=== PATIENT | male | born 1970 | race Caucasian/White ===

== ENCOUNTER → 2024-02-17 14:12 | Outpatient (REF) | payer BC, SELFPAY | LOC: HWRAD 14:12 | PROVIDERS: ATTENDING PHYSICIAN Podiatrist; FAMILY PHYSICIAN Family Medicine | DX: M85.60 Other cyst of bone, unspecified site (principal) | CPT/HCPCS: 73630 ==

== ENCOUNTER → 2024-03-02 13:18 | Outpatient (REF) | payer BC, SELFPAY | LOC: PAVMRI 13:18 | PROVIDERS: ATTENDING PHYSICIAN Podiatrist Foot & Ankle Surgery | DX: M86.671 Other chronic osteomyelitis, right ankle and foot (principal) | CPT/HCPCS: 73720; A9575 ==

== ENCOUNTER 2024-03-15 11:46 | Inpatient (IN) | payer BC, SELFPAY ==
[2024-03-15] VITALS (8 sets, daily range): BP systolic 120–170; BP diastolic 78–105; BMI 23.3
--- NOTE | 2024-03-15 09:51 | ED.GENMED ---
History of Present Illness
General
Chief Complaint: Musculo-Skeletal Complaint
Source: patient and spouse
Exam Limitations: none
Time Seen by Provider: 03/15/24 09:08
Nursing documentation reviewed up to this point in time: agreed with
History of Present Illness
History of Present Illness:
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
fifth metatarsal. There is additional surrounding myositis and cellulitis. Podiatry and infectious disease as an outpatient determined that this will need surgery and bone biopsy and IV antibiotics. He otherwise feels generally well today. Has
had some intermittent fevers over the past few weeks.
Past History
Past History
ED Past Medical History: [place]
ED Past Surgical History: Appendectomy
Social History
Tobacco: Smoker
Alcohol: Daily (4 beers)
Drug: None
Personal:
Living: with family
Employment: Employed
Review of Systems
Review of Systems
Allergies reviewed?: Yes
All Other Systems: ROS reviewed and negative except as documented in HPI and ROS
Phy Exam
Physical Exam
Physical Exam:
GENERAL: Alert , in no apparent distress
EYE: pupils equal and reactive
NECK: Supple, no significant adenopathy.
ENT: o/p clr, mmm.
CARDIAC: Regular rate and rhythm .
LUNGS: Clear breath sounds bilaterally, no acute respiratory distress, no wheezes/rales/rhonchi
ABDOMEN: Soft, without focal tenderness, no r/g, no cvat
NEUROLOGICAL: Alert and oriented, no focal neuro deficits
SKIN: Warm and dry, skin intact.
MUSCULOSKELETAL: Deformity to the right foot some vague redness tenderness to the area overlying the distal fifth metatarsal, well perfused.
PSYCH: Normal and appropriate interaction.
Sepsis
Sepsis Screening
Sepsis Assessment: Sepsis Ruled Out
Sepsis Screen
Sepsis Screen: Sepsis Ruled Out
Date: 03/15/24
Time: 10:00
Course
Orders/Labs/Results
Orders:
Orders
03/15/24 09:38
EKG [Electrocardiogram (*1)] Urgent
Reason for Study: PreOp
EKG- Treatment ONCE
CBC/With Diff [Complete Blood Count/With Diff] Urgent
CMP [Comprehensive Metabolic Panel] Urgent
Vital Signs
Initial and Last Documented VS:
Initial Vital Signs
Temp Pulse Resp BP Pulse Ox
98.7 F 90 16 170/105 100
03/15/24 08:37 03/15/24 08:37 03/15/24 08:37 03/15/24 08:37 03/15/24 08:37
Last Documented Vital Signs
Temp Pulse Resp BP Pulse Ox
98.7 F 79 16 120/96 98
03/15/24 08:37 03/15/24 09:35 03/15/24 09:35 03/15/24 09:35 03/15/24 09:35
MDM/Problems Addressed
MDM/Problems Addressed:
53-year-old male presenting for surgery of the right foot. Sent in by podiatry and also had discussions with infectious disease. Podiatry physician was specifically contacted and requested to hold off on IV antibiotics until surgery where they
will do a biopsy culture. They are recommending for him to be n.p.o. Labs and EKG sent as preop. Otherwise no symptoms at this time.
*Critical Care Note
Total Time (30-74mins, 75-104mins- exclusive of procedures): Not Applicable
ED Attending Note
-
Portions of this chart may have been created with voice recognition software.� Occasional wrong word or��sound alike� substitutions may have occurred due to the inherent limitations of voice recognition software.
Discharge Plan
Departure
Patient Disposition: Admit
Date of Disposition: 03/15/24
Time of Disposition: 09:58
Admit to: Med/Surg
Admit to doctor: Do
Presentation/result/management discussed w/ accepting MD/DO: Hospitalist
Patient with high blood pressure during this ER visit?: No
Condition: Good
Covid-19: Not Applicable
Discharge Problem:
Osteomyelitis of foot
Prescriptions:
No Action
aspirin 81 MG tablet,delayed release (DR/EC)
81 mg PO DAILY
ibuprofen 200 MG tablet
200 mg PO Q4HPRN PRN (Reason: mild pain/ fever)
amoxicillin-pot clavulanate 1 TABLET tablet
1 tab PO Q12 Qty: 16 0RF
Referrals:
Carlin Hirsch DO [Family Provider] -
Interventions
Interventions:
*Risk Screen - Suicide Last Done: 03/15/24 09:35
*General Assessment Last Done: 03/15/24 09:35
*Neglect/Abuse Screening Last Done: 03/15/24 09:35
ED- Fall Risk Assessment Last Done: 03/15/24 09:39
*ED COVID-19 Vaccine History Last Done: 03/15/24 09:35
ED-Musculoskeletal Assessment Last Done: 03/15/24 09:39
Discharge Date and Time
Print Language: ESTONIAN
[2024-03-15 10:04] LABS: % Basophils 0.8 % (0-2); % Eosinophils 2.3 % (0-6); % Immature Granulocytes 0.5 % (0-0.5); % Lymphocytes 15.9 % (20.5-51.1); % Monocytes 16.5 % (1.7-9.3); Absolute Basophils 0.1 10^3/uL (0-0.2); Absolute Eosinophils 0.2 10^3/uL (0-0.7); Absolute Lymphocytes 1.2 10^3/uL (1.2-3.4); Absolute Monocytes 1.2 10^3/uL (0.1-0.6); Absolute Neutrophils 4.7 10^3/uL (1.4-6.5); Hematocrit 48.2 % (39.0-52.0); Hemoglobin 16.5 g/dL (13.0-18.0); Mean Corp Hgb Conc. 34.2 g/dL (33.0-37.0); Mean Corpuscular Hgb 32.9 pg (27.0-31.0); Mean Corpuscular Volume 96.2 fL (80.0-94.0); Mean Platelet Volume 8.9 fL (7.4-10.4); Nucleated Red Blood Cells % 0 % (-); Platelet Count 218 10^3/uL (130-400); Red Blood Cell Count 5.01 10^6/uL (4.70-6.10); Red Cell Dist. Width 12.4 % (11.5-14.5); White Blood Cell Count 7.4 10^3/uL (4.8-10.8)
[2024-03-15 10:14] LABS: ALT (SGPT) 14 U/L (0-50); AST (SGOT) 16 U/L (17-59); Albumin 4.3 g/dl (3.5-5.0); Alkaline Phosphatase 62 U/L (38-126); Blood Urea Nitrogen 14 mg/dl (9-20); Calcium 9.5 mg/dl (8.4-10.2); Carbon Dioxide 23 mmol/L (22-30); Chloride 106 mmol/L (98-107); Estimated Creatinine Clearance > 125 ml/min; Glucose 113 mg/dl (70-99); Potassium 4.3 mmol/L (3.5-5.1); Sodium 138 mmol/L (135-145); Total Bilirubin 0.4 mg/dl (0.2-1.3); Total Protein 7.6 g/dl (6.3-8.2); eGFR > 60.00
--- NOTE | 2024-03-15 11:04 | EDRN ---
Dr. Broderick in room w/ pt at this time.
[2024-03-15 11:18] LABS: INR 1.05
--- NOTE | 2024-03-15 11:20 | HPS.HSE ---
Family Physician
-
Family Physician: Carlin Hirsch
Chief Complaint
-
Right foot osteomyelitis
History of Present Illness
Patient is a 53 years old male who was born with a right foot deformity and has longstanding right foot pedal aspect wound initially started with callus and later developed osteomyelitis. Patient underwent antibiotic treatment with levofloxacin
which was discontinued about 3 weeks ago. Follow-up imaging with MRI consistent with extensive osteomyelitis of the fifth metatarsal. There is a surrounding myositis and cellulitis without overt abscess. Patient has been admitted with plan for
right fifth metatarsal head resection. Patient has been afebrile with no symptoms of generalized infection.
Medical History
Past Medical History
Past Medical History: Reports None
Past Surgical History: Reports None
Social History
Tobacco: Smoker
Alcohol: None
Drug: None
Family History
Family History: Not pertinent
Allergies / Home Medications
Allergies reflects when Allergies were last updated in [facility].
Home Medications with original date entered in [facility]
Allergy/Medication List:
Allergies
Allergy/AdvReac Type Severity Reaction Status Date / Time
No Known Allergies Allergy Verified 03/15/24 08:42
Home Medications
No Meds [No Current Medications] 03/15/24
Review of Systems
-
A 12 point ROS was completed and negative except as noted: Yes
Physical Exam
Vital Signs
Vital Signs
Temp Pulse Resp BP Pulse Ox
98.7 F 72 16 123/83 97
03/15/24 08:37 03/15/24 10:00 03/15/24 10:00 03/15/24 10:00 03/15/24 10:00
Physical Exam
General: Well Developed, Well Nourished and No Apparent Distress
HEENT: NormoCephalic, Moist mucous membranes and Atraumatic
Respiratory: Clear
Cardiac: S1/S2 and Regular Rhythm; No Murmur or Rub
GI: Soft, Non Tender, Non Distended and Normal Bowel Sounds; No Organomegaly
Rectal: Deferred by Provider
Musculoskeletal: No Clubbing, No Cyanosis and No Edema
Skin: No Rash
Neuro: Nonfocal/grossly intact
Laboratory Results
-
03/15/24 09:48
03/15/24 09:48
Laboratory Results
Total Bilirubin 0.4 mg/dl (0.2-1.3) 03/15/24 09:48
AST 16 U/L (17-59) L 03/15/24 09:48
ALT 14 U/L (0-50) 03/15/24 09:48
Alkaline Phosphatase 62 U/L (38-126) 03/15/24 09:48
Impression/Plan
-
IMPRESSION:
Right foot fifth metatarsal posterior with myositis and cellulitis.
Right foot deformity
Tobacco use disorder
PLAN:
Being admitted for fevers metatarsal healthy resection.
ID consulted
Antibiotic treatment pending intraoperative culture
--- NOTE | 2024-03-15 12:44 | EDRN ---
Pt left for 1 acute admission bed at this time in w/c after verbal report given to pt's RN Nelda at this time.
--- NOTE | 2024-03-15 13:30 | W.CS.POD ---
Addendum entered and electronically signed by Juan Garsia DPM 03/15/24 14:32:
Patient had food at 2pm, so rescheduled for Rt foot bone resection for tomorrow 03/16/2024 at 4pm
NPO at midnight today.
Original Note:
Consult Summary - Podiatry
-
53 yo non diabetic male known to me as an out patient in the clinic few wks ago,presented with Rt foot possible osteomyelitis with chronic Rt plantar callus lesion, was treated by another front desk agent with debridement and po abx for 3 wks , and noted
to have extensive osteomyelitis of the Rt 5th metatarsal , so I have sent him tot he hosp for possible Rt foot 5th met head resection and followed by [facility] IV abx after bone cultures, PT currently in no acute distress, no fever, chills, no
SOB,. HE is aware of the procedure today.
Reviewed PMH, meds and allergies
Rt foot Intact vascular status
Rt foot submet 5th with callus, no open ulceration, no edema, no erythema to Rt foot .
B/L feet with defects noted.
B/L muscular strength WNL
WBC count is WNL
A/P : Rt foot 5th metatarsal osteomyelitis.
Chronic smoker.
defct of the feet
Plan : I have d/w patient and primary service about Rt 5th met resection and sending bone for pathology and cultures
requested ID for possible [facility] IV abx
Scheduled patient for the bone resection today 03/15/2024 at 4pm
NPo for the procedure
Medical clearance by hosp service
D/W patient about all risks of non healing, reinfection, more proximal bone resections, no guarantees given with the outcome
Patient t understands and willing to proceed with procedure
Obtained consent.
--- NOTE | 2024-03-15 14:13 | PTCARENOTE ---
Pt admitted to 1Acute. AOx3. on RA. expiratory wheeze noted. current pack/day smoker. Regular heart sounds. abd soft NT. +BSx4. cont b&B. Pt ordered to be NPO but was observed eating meal, plan for OR this evening so podiatry notified. POC updated.
new plan for OR tomorrow. 4pm skin is CDI, right foot previous amputations. No edema. PP B/L CB in reach.
--- NOTE | 2024-03-15 15:47 | CON.ID ---
Consultation
-
Date/Time Consultation Requested: 03/15/2024 1351
Date/Time Consultation Performed: 03/15/2024 1512
Requesting Provider: Dr. Broderick
Performing Provider: Dr. Lee
Reason for Consultation: Right foot osteomyelitis
Chief Complaint / Past History
History of Present Illness
Melissa Patton is a 53-year-old male being evaluated at the request of Dr. Broderick regarding right foot osteomyelitis. History is obtained from chart review, along with patient interview.
The patient has a history of right foot deformity, and reports a prior history of right foot osteomyelitis approximately 5 years ago. At that time he notes that he was on a course of antibiotics, although he is not sure whether it was IV or not.
Ultimately the infection at that time resolved. More recently, approximately 2 to 2-1/2 months ago he reports that he had recurrence of swelling, especially along the lateral aspect of his right foot and onto the ankle area. He additionally
recalls that there was drainage under the [facility] head area. He notes that it was not a lot of drainage, but he did have the area bandaged and often would see a small amount of drainage in that spot. He notes that his Nuclear Chemistry Technician placed him on
a course of Levaquin for approximately 3 weeks. Drainage improved, although was not completely resolved. He ultimately was sent on to a surgical Nuclear Chemistry Technician, and further workup ensued, including x-ray imaging, and more recently an MRI which was
suggestive of osteomyelitis. He has been brought in for biopsy.
He denies any fevers or chills. He notes prior swelling was limited to the right foot area, with no extension of redness above the ankle.
Past History
Additional Past Medical History:
Congenital foot deformities
Additional Past Surgical History:
Right foot surgery.
Appendectomy
Low back surgery
Allergy History:
No Known Allergies Allergy (Verified 03/15/24 08:42)
Medications Reviewed: Yes
Current Antibiotics:
None
Social History
Tobacco: Smoker (1 pack/day)
Alcohol: Occasional (Social)
Drug: None
Personal:
Living: With Family
Employment: Employed
Review of Systems
Vital Signs
Temp Pulse Resp BP Pulse Ox
98.2 F 63 18 136/86 99
03/15/24 14:10 03/15/24 14:10 03/15/24 14:10 03/15/24 14:10 03/15/24 14:10
Physical Exam
Physical Exam
Constitutional: No Acute Distress, Comfortable and Non-toxic
Eyes: Sclera Anicteric
Cardiovascular: S1/S2; Negative S3/S4
Pulmonary: Non Labored
Gastrointestinal: Soft, Non Tender and Non Distended
Extremities: Edema (trace; right foot), Pulses and Venous Insufficiency; Negative Erythema or Calf Swelling
Skin: Warm and Dry; Negative Rash or Jaundice
Wound: None
Neurological: Awake, Alert and Oriented
Lab / Diagnostic Study Results
03/15/24 09:48
03/15/24 09:48
Abs Immat Gran (auto) 0.0 10^3/uL (0-0.05) 03/15/24 09:48
Absolute Neuts (auto) 4.7 10^3/uL (1.4-6.5) 03/15/24 09:48
Absolute Lymphs (auto) 1.2 10^3/uL (1.2-3.4) 03/15/24 09:48
Absolute Monos (auto) 1.2 10^3/uL (0.1-0.6) H 03/15/24 09:48
Absolute Basos (auto) 0.1 10^3/uL (0-0.2) 03/15/24 09:48
Immature Gran % 0.5 % (0-0.5) 03/15/24 09:48
Neutrophils % 64.0 % (42.2-75.2) 03/15/24 09:48
Lymphocytes % 15.9 % (20.5-51.1) L 03/15/24 09:48
Monocytes % 16.5 % (1.7-9.3) H 03/15/24 09:48
Eosinophils % 2.3 % (0-6) 03/15/24 09:48
Basophils % 0.8 % (0-2) 03/15/24 09:48
PT 14.0 Sec (11.4-14.6) 03/15/24 11:00
INR 1.05 03/15/24 11:00
Microbiology Results
Imaging:
03/02/2024 MRI right lower extremity: There is extensive osteomyelitis of the fifth metatarsal with surrounding myositis and cellulitis, without overt abscess.
02/17/2024 X-ray right foot: There is prominent soft tissue edema within the lateral aspect of the distal foot, with dislocation of the fifth phalanx and erosions involving the left fifth metatarsal head compatible with osteomyelitis. There appears
to be a wound within the adjacent soft tissues. There has been prior postsurgical resections of the distal margins of the left 1st through 4th toes. (Film personally viewed.)
Assessment / Plan
Right foot osteomyelitis (fifth metatarsal)
History of congenital foot abnormality
Recommendations:
Patient currently off antibiotics for at least the past 3 weeks.
Continue off antibiotics for the present.
Patient for biopsy of the area tomorrow.
Please send aerobic and anaerobic cultures, along with pathology.
Further recommendations as additional data is returned.
Care Review
Plan reviewed with: Physician (Hospitalist)
[2024-03-16] VITALS (7 sets, daily range): BP systolic 12–130; BP diastolic 75–89
--- NOTE | 2024-03-16 14:15 | W.PN.ID1 ---
Date of Service
Date of Service: March 16, 2024
Today's Communication
Observe off antibiotics; await biopsy/resection.
Assessment / Plan
Right foot osteomyelitis (fifth metatarsal)
History of congenital foot abnormality
Recommendations:
Patient currently off antibiotics for at least the past 3 weeks.
Continue off antibiotics for the present.
Patient for biopsy (versus fifth met resection) later today.
Please send aerobic and anaerobic cultures, along with pathology.
Further recommendations as additional data is returned.
Will attempt to get outpatient cultures from patient's supervisor cytogenetic laboratory.
Chief Complaint
-: Other (Right foot osteomyelitis)
Subjective / Review of Systems
Review of Systems: No Fever and No Chills
Vital Signs / Physical Exam
Vital Signs
Vital Signs
Temp Pulse Resp BP Pulse Ox
98.2 F 70 16 111/79 97
03/16/24 07:00 03/16/24 07:00 03/16/24 07:00 03/16/24 07:00 03/16/24 07:00
Physical Exam
Constitutional: No Acute Distress, Comfortable and Non-toxic
Eyes: Sclera Anicteric
Pulmonary: Non Labored
Extremities: Other (No right foot erythema. Mild edema.)
Neurological: Awake and Alert
Psychological: Calm
Objective Data
Lab Data
Lab Results
03/15/24 09:48
03/15/24 09:48
PT 14.0 Sec (11.4-14.6) 03/15/24 11:00
INR 1.05 03/15/24 11:00
APTT 29.0 Sec (23.4-35.0) 03/15/24 11:00
Estimated Creat Clear > 125 ml/min 03/15/24 09:48
Total Bilirubin 0.4 mg/dl (0.2-1.3) 03/15/24 09:48
AST 16 U/L (17-59) L 03/15/24 09:48
ALT 14 U/L (0-50) 03/15/24 09:48
Alkaline Phosphatase 62 U/L (38-126) 03/15/24 09:48
Most recent labs reviewed.
Imaging:
03/02/2024 MRI right lower extremity: There is extensive osteomyelitis of the fifth metatarsal with surrounding myositis and cellulitis, without overt abscess.
02/17/2024 X-ray right foot: There is prominent soft tissue edema within the lateral aspect of the distal foot, with dislocation of the fifth phalanx and erosions involving the left fifth metatarsal head compatible with osteomyelitis. There appears
to be a wound within the adjacent soft tissues. There has been prior postsurgical resections of the distal margins of the left 1st through 4th toes. (Film personally viewed.)
--- NOTE | 2024-03-16 14:25 | CM ---
Patient seen bedside.
IA completed.
Patient lives with spouse in a bilevel home with 6 steps to enter.
Patient independent prior to admission.
patient for OR today.
PCP: Dr Hirsch
Phrmacy: [facility]
Plan: home with possible VN and IV anbx. Options list provided to patient for review.
--- NOTE | 2024-03-16 16:00 | PTCARENOTE ---
Pt sent to OR
--- NOTE | 2024-03-16 17:11 | W.SUR.POST ---
Surgical Immediate Post Op
Note
Pre Op Diagnosis: Rt 5th metatarsal osteomyelitis
Post Op Diagnosis: Same as above
Procedure Performed: Bone resection from Rt 5th metatarsal head and bone sent form base of the 5th toe proximal pahalanx
Primary Surgeon: Dr. Garsia DPM
Secondary Surgeons: None
Anesthesia: MAC with local block
Estimated Blood Loss: 1 cc
Fluids: None
Drains/Shunts: None
Specimens/Cultures: Aerobic and anaerobic
Doppler/Duplex/Angio (Y/N): N
Complications: None
Operative Findings: There was a disarticulated piece of bone noted at the base of the proximal phalanx and minimal erosion noted at the distal aspect of the 5th metatarsal head, remaining metatarsal noted to be healthy and Wnl architecture .
PT stable in PACU with intact vascular status to Rt foot and stable vital signs
--- NOTE | 2024-03-16 17:21 | W.PN.HOSP.TC ---
Today's Communication/Plan
-
OR
Assessment / Plan
Assessment / Plan
IMPRESSION:
Right foot fifth metatarsal posterior with myositis and cellulitis.
Right foot deformity
Tobacco use disorder
PLAN:
Admitted for elective right fifth metatarsal head resection.
ID consulted
Antibiotic treatment pending intraoperative culture
Anticipated Discharge: 24 - 48 hours
Subjective/Interval History
-
Date of Service: March 16, 2024
Objective Data
-
Vital Signs:
Vital Signs
Temp Pulse Resp BP Pulse Ox
97.9 F 99 18 128/84 97
03/16/24 15:00 03/16/24 15:00 03/16/24 15:00 03/16/24 15:00 03/16/24 15:00
I&O
03/15/24 03/16/24 03/17/24
06:59 06:59 06:59
Intake Total 480 / 480
Balance 480 / 480
Physical Exam
-
General: Well Developed and No Apparent Distress
HEENT: Normocephalic, Atraumatic and Moist Mucous Membranes
Respiratory: Clear to Auscultation
Cardiac: Regular Rhythm and S1/S2; Negative Murmur, Rub or Gallop
GI: Soft, Nontender, Nondistended and Normal Bowel Sounds; Negative Organomegaly
Rectal: Deferred by Provider
Musculoskeletal: No Clubbing, No Cyanosis and No Edema
Skin: Negative Rash
Neuro: Nonfocal/Grossly Intact
[2024-03-17 06:40] LABS: Hematocrit 45.4 % (39.0-52.0); Mean Corp Hgb Conc. 35.2 g/dL (33.0-37.0); Mean Corpuscular Hgb 33.1 pg (27.0-31.0); Mean Platelet Volume 9.3 fL (7.4-10.4); Platelet Count 255 10^3/uL (130-400); Red Blood Cell Count 4.83 10^6/uL (4.70-6.10); Red Cell Dist. Width 11.9 % (11.5-14.5); White Blood Cell Count 11.8 10^3/uL (4.8-10.8)
[2024-03-17 07:10] LABS: ALT (SGPT) 14 U/L (0-50); AST (SGOT) 18 U/L (17-59); Albumin 4.2 g/dl (3.5-5.0); Alkaline Phosphatase 58 U/L (38-126); Blood Urea Nitrogen 17 mg/dl (9-20); Calcium 9.4 mg/dl (8.4-10.2); Carbon Dioxide 25 mmol/L (22-30); Chloride 101 mmol/L (98-107); Estimated Creatinine Clearance > 125 ml/min; Glucose 144 mg/dl (70-99); Potassium 4.4 mmol/L (3.5-5.1); Sodium 134 mmol/L (135-145); Total Bilirubin 0.6 mg/dl (0.2-1.3); Total Protein 7.4 g/dl (6.3-8.2); eGFR > 60.00
[2024-03-17 07:53] VITALS: BP 106/76
--- NOTE | 2024-03-17 10:00 | W.PN.ID1 ---
Date of Service
Date of Service: March 17, 2024
Today's Communication
Begin daptomycin while further cultures and pathology are pending.
Assessment / Plan
Right foot osteomyelitis (fifth metatarsal)
History of congenital foot abnormality
Recommendations:
Patient has been off of antibiotics at least 3 weeks.
Status post partial right fifth met resection 03/16/24. Cultures and pathology have been sent.
Outpatient records have been reviewed, and recovery of prior MRSA noted.
Will initiate daptomycin based upon those cultures pending more updated results.
Check CPK, along with ESR and CRP.
����������������������������������������������������������
Chief Complaint
-: Other (Right foot osteomyelitis)
Subjective / Review of Systems
Patient seen and examined. Underwent right fifth met partial resection 02/15/2024. Overall feels well today. Pain controlled.
Review of Systems: No Fever and No Chills
Vital Signs / Physical Exam
Vital Signs
Vital Signs
Temp Pulse Resp BP Pulse Ox
98.1 F 86 17 106/76 98
03/17/24 07:53 03/17/24 07:53 03/17/24 07:53 03/17/24 07:53 03/17/24 07:53
Physical Exam
Constitutional: No Acute Distress, Comfortable and Non-toxic
Eyes: Sclera Anicteric
Pulmonary: Non Labored
Extremities: Other (Right foot dressed in Dejan wrap. No erythema extending up leg.)
Neurological: Awake and Alert
Psychological: Calm
Objective Data
Lab Data
Lab Results
03/17/24 06:17
03/17/24 06:17
PT 14.0 Sec (11.4-14.6) 03/15/24 11:00
INR 1.05 03/15/24 11:00
APTT 29.0 Sec (23.4-35.0) 03/15/24 11:00
Estimated Creat Clear > 125 ml/min 03/17/24 06:17
Total Bilirubin 0.6 mg/dl (0.2-1.3) 03/17/24 06:17
AST 18 U/L (17-59) 03/17/24 06:17
ALT 14 U/L (0-50) 03/17/24 06:17
Alkaline Phosphatase 58 U/L (38-126) 03/17/24 06:17
Most recent labs reviewed.
Micro Results:
03/16/24 16:45 Wound Culture - Pending
Foot - Right Gram Stain - Preliminary
03/16/24 16:45 Wound Culture - Pending
Bone Gram Stain - Preliminary
03/16/24 16:45 Wound Culture - Pending
Bone Gram Stain - Preliminary
03/16/24 16:45 Anaerobic Culture - Pending
Foot - Right
03/16/24 16:45 Anaerobic Culture - Pending
Bone
03/16/24 16:45 Anaerobic Culture - Pending
Bone
Right foot culture (collected by Dr. Marlon Cardona, [place])
Imaging:
03/02/2024 MRI right lower extremity: There is extensive osteomyelitis of the fifth metatarsal with surrounding myositis and cellulitis, without overt abscess.
02/17/2024 X-ray right foot: There is prominent soft tissue edema within the lateral aspect of the distal foot, with dislocation of the fifth phalanx and erosions involving the left fifth metatarsal head compatible with osteomyelitis. There appears
to be a wound within the adjacent soft tissues. There has been prior postsurgical resections of the distal margins of the left 1st through 4th toes. (Film personally viewed.)
[2024-03-17] MEDS: CUBICIN 16 MG IV (12:00)
--- NOTE | 2024-03-17 13:55 | CM ---
Addendum entered by Apple Barrios 03/17/24 16:17:
await final cx and script patient does have an infusion benefit with [employer].
Original Note:
Patient seen bedside.
Patient reviewed options and would like [facility] for IV anbx.
Patient denies need for VN for wound care.
Will send insurance info to [facility] to verify benefit once anbx verified.
plan: home with IV anbx once medically stable
[2024-03-17 15:28] VITALS: BP 126/84
--- NOTE | 2024-03-17 15:30 | W.PN.HOSP.TC ---
Today's Communication/Plan
-
IV antibiotics
Discharge planing
Assessment / Plan
Assessment / Plan
IMPRESSION:
Right foot fifth metatarsal posterior with myositis and cellulitis.
Bilateral foot deformity
Tobacco use disorder
PLAN:
Admitted for elective right fifth metatarsal head resection.
Initiated on daptomycin by ID after review of outpatient cultures.
Intraoperative cultures pending
Continue wound care
Case management consultation for discharge planning including outpatient infusion
Anticipated Discharge: 24 - 48 hours
Subjective/Interval History
-
Date of Service: March 17, 2024
Objective Data
-
Labs:
Laboratory Results
03/17/24
06:17
WBC 11.8 H
Hgb 16.0
Hct 45.4
Plt Count 255
Sodium 134 L
Potassium 4.4
Chloride 101
Carbon Dioxide 25
BUN 17
Creatinine 0.6 L
Glucose 144 H
Calcium 9.4
Total Bilirubin 0.6
AST 18
ALT 14
Alkaline Phosphatase 58
Vital Signs:
Vital Signs
Temp Pulse Resp BP Pulse Ox
98.0 F 73 17 126/84 96
03/17/24 15:28 03/17/24 15:28 03/17/24 15:28 03/17/24 15:28 03/17/24 15:28
I&O
03/16/24 03/17/24 03/18/24
06:59 06:59 06:59
Intake Total 480 / 480 300 / 300
Balance 480 / 480 300 / 300
Physical Exam
-
General: Well Developed and No Apparent Distress
HEENT: Normocephalic, Atraumatic and Moist Mucous Membranes
Respiratory: Clear to Auscultation
Cardiac: Regular Rhythm and S1/S2; Negative Murmur, Rub or Gallop
GI: Soft, Nontender, Nondistended and Normal Bowel Sounds; Negative Organomegaly
Rectal: Deferred by Provider
Musculoskeletal: No Clubbing, No Cyanosis and No Edema
Skin: Negative Rash
Neuro: Nonfocal/Grossly Intact
--- NOTE | 2024-03-17 17:30 | W.PN.POD ---
Today's Communication
Today's Communication
He will f/u in my office after discharge
Assessment / Plan
-
Chronic Rt 5th metatarsal osteomyelitis.
Congenital deformity b/l feet.
Chronic smoker ( nicotine )
Plan : Changed surgical dressings , applied adaptic, dry gauze and kerlix and ROM wrap
Cont abx per ID
Cont walker and wt bear to Rt heel only
Patient is stable per podiatry to d/c
Subjective
Chief Complaint
Rt foot chronic osteomyelitis.
Subjective
patient seen at bedside, doing well, no pain in RT foot, denies any fever, chills, intact dressings to Rt foot, no strike through bleeding noted. HE is able to use walker and wt bear to Rt heel
Objective
Temp Pulse Resp BP Pulse Ox
98.0 F 73 17 126/84 96
03/17/24 15:28 03/17/24 15:28 03/17/24 15:28 03/17/24 15:28 03/17/24 15:28
03/17/24 06:17
03/17/24 06:17
Vital Signs and Lab results were reviewed.
Rt foot intact vascular status
Rt foot surgical incision is clean, dry, no bleeding, intact sutures, no edema, minimal tenderness noted
[2024-03-17 23:30] VITALS: BP 139/80
[2024-03-18 07:52] LABS: Creatine Phosphokinase 28 U/L (55-170)
[2024-03-18 07:59] VITALS: BP 125/81
[2024-03-18] MEDS: CUBICIN 16 MG IV (11:37)
--- NOTE | 2024-03-18 11:41 | CM ---
Addendum entered by Eleni Nicole 03/18/24 15:24:
Patient to have in person teaching session for home IV ABX at [place] tomorrow, spouse to transport, patient and spouse to manage wound. Home today.
Addendum entered by Eleni Nicole 03/18/24 14:13:
All paperwork faxed to [facility].
Addendum entered by Eleni Nicole 03/18/24 13:48:
Waiting on PICC and then will fax H&P, PICC information and documentation along prescription to [facility]. Plan is for outpatient infusion at [facility] tomorrow for teach and medication, patient and spouse spoke directly with [facility] and
they agree with plan, patient wants a walker due to NWB, nursing is aware.
Original Note:
ocean freight manager received a prescription for IV ABX for patient. Call placed to [facility], will fax prescription.
Plan; To follow up with [facility] for home IV ABX.
[2024-03-18 11:59] LABS: Erythrocyte Sed Rate 13 mm/hour (0-20)
--- NOTE | 2024-03-18 12:11 | W.PN.ID1 ---
Date of Service
Date of Service: March 18, 2024
Today's Communication
Continue abx.
Assessment / Plan
Right foot osteomyelitis (fifth metatarsal)
History of congenital foot abnormality
Recommendations:
OR cultures have revealed the presence of MRSA.
Home infusion sheet has been completed and given to case management.
Place PICC line.
Will follow-up in office in approximately 2 weeks.
����������������������������������������������������������
Chief Complaint
-: Other (Right foot osteomyelitis)
Subjective / Review of Systems
Review of Systems: No Fever and No Chills
Vital Signs / Physical Exam
Vital Signs
Vital Signs
Temp Pulse Resp BP Pulse Ox
97.7 F 61 12 125/81 97
03/18/24 07:59 03/18/24 07:59 03/18/24 07:59 03/18/24 07:59 03/18/24 07:59
Physical Exam
Constitutional: No Acute Distress, Comfortable and Non-toxic
Eyes: Sclera Anicteric
Cardiovascular: S1/S2; Negative S3/S4
Pulmonary: Non Labored
Extremities: Other (Right foot dressed in Dejan wrap. No erythema extending up leg.)
Neurological: Awake and Alert
Psychological: Calm
Objective Data
Lab Data
Lab Results
03/17/24 06:17
03/17/24 06:17
ESR 13 mm/hour (0-20) 03/18/24 06:59
PT 14.0 Sec (11.4-14.6) 03/15/24 11:00
INR 1.05 03/15/24 11:00
APTT 29.0 Sec (23.4-35.0) 03/15/24 11:00
Estimated Creat Clear > 125 ml/min 03/17/24 06:17
Total Bilirubin 0.6 mg/dl (0.2-1.3) 03/17/24 06:17
AST 18 U/L (17-59) 03/17/24 06:17
ALT 14 U/L (0-50) 03/17/24 06:17
Alkaline Phosphatase 58 U/L (38-126) 03/17/24 06:17
C-Reactive Protein 6.60 mg/L (0.0-10.00) 03/18/24 06:59
Most recent labs reviewed.
Micro Results:
03/16/24 16:45 Tissue Culture - Preliminary
Bone Staph aureus MRSA
Gram Stain - Preliminary
03/16/24 16:45 Anaerobic Culture - Preliminary
Foot - Right Culture pending. Anaerobic cultures are examined after 3
days incubation. Additional information to follow.
03/16/24 16:45 Wound Culture - Preliminary
Foot - Right Staph aureus MRSA
Gram Stain - Preliminary
03/16/24 16:45 Anaerobic Culture - Preliminary
Bone Culture pending. Anaerobic cultures are examined after 3
days incubation. Additional information to follow.
03/16/24 16:45 Tissue Culture - Preliminary
Bone Staph aureus MRSA
Gram Stain - Preliminary
03/16/24 16:45 Anaerobic Culture - Preliminary
Bone Culture pending. Anaerobic cultures are examined after 3
days incubation. Additional information to follow.
Right foot culture (collected by Dr. Marlon Cardona, [place])
Imaging:
03/02/2024 MRI right lower extremity: There is extensive osteomyelitis of the fifth metatarsal with surrounding myositis and cellulitis, without overt abscess.
02/17/2024 X-ray right foot: There is prominent soft tissue edema within the lateral aspect of the distal foot, with dislocation of the fifth phalanx and erosions involving the left fifth metatarsal head compatible with osteomyelitis. There appears
to be a wound within the adjacent soft tissues. There has been prior postsurgical resections of the distal margins of the left 1st through 4th toes. (Film personally viewed.)
Care Review
Plan reviewed with: Physician (Hospitalist)
--- NOTE | 2024-03-18 15:07 | W.DS.TRANS ---
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
-
Discharge Instructions:
Discharge Diagnosis/Procedures Right foot osteomyelitis
Diet Regular
Instructions:
Stand-Alone Forms:
Changes to Home Medications: Yes
Discharge Medications:
DC Medications w/original date entered in [place]
DAPTOmycin [Cubicin] 800 mg As Directed mls/hr IV Q24H 03/18/24
acetaminophen 325 mg tablet 650 mg (2 x 325 mg) PO Q4HPRN PRN pain #30 tabs 03/18/24
Home Medication Changes
Being discharged on IV antibiotics to follow-up with infectious disease service in 2 weeks.
Pending Results: No
[2024-03-18 15:11] VITALS: BP 122/82
--- NOTE | 2024-03-18 16:08 | PTCARENOTE ---
Patient discharged with dressing supplies. Reviewed dressing change instructions with patient and spouse. Patient verbalized understanding.
== END 2024-03-18 16:17 | disposition home or self-care (01) | DRG 504 ==
LOC: 1 ACUTE 11:46
PROVIDERS: Physician Assistant; Radiology Diagnostic Radiology; ADMITTING PHYSICIAN Internal Medicine; CONSULT PHYSICIAN Internal Medicine Infectious Disease; CONSULT PHYSICIAN Podiatrist Foot & Ankle Surgery; EMERGENCY PHYSICIAN Student in an Organized Health Care Education/Training Program; FAMILY PHYSICIAN Family Medicine
PROC: 0QBN0ZZ Excision of Right Metatarsal, Open Approach (ICD-10-PCS; 2024-03-16)
PROC: 0QBQ0ZZ Excision of Right Toe Phalanx, Open Approach (ICD-10-PCS; 2024-03-16)
PROC: 3E02340 Introduction of Influenza Vaccine into Muscle, Percutaneous Approach (ICD-10-PCS; 2024-03-18)
PROC: 02HV33Z Insertion of Infusion Device into Superior Vena Cava, Percutaneous Approach (ICD-10-PCS; 2024-03-18)
DX: M86.671 Other chronic osteomyelitis, right ankle and foot (principal); L03.115 Cellulitis of right lower limb; M60.871 Other myositis, right ankle and foot; B95.62 Methicillin resistant Staphylococcus aureus infection as the cause of diseases classified elsewhere; I25.10 Atherosclerotic heart disease of native coronary artery without angina pectoris; F17.210 Nicotine dependence, cigarettes, uncomplicated; Q66.89 Other specified congenital deformities of feet; Z23 Encounter for immunization
CPT/HCPCS: 88304; 88311; 71045; 80053; 82550; 85025; 85027; 85610; 85652; 85730; 86140; 87070; 87075; 87077; 87147; 87176; 87186; 87205; 93005; 99285; 99406; J0878